=== PATIENT | male | born 1985 | race Caucasian/White ===

== ENCOUNTER 2017-03-29 11:06 | Emergency (ER) | payer OTHER ==
[2017-03-29] MEDS ORDERED: BENADRYL 50 MG/ML IV ONE (11:31)
[2017-03-29] MEDS ORDERED: MORPHINE SULFATE 10 MG/ML IV ONE (11:31)
[2017-03-29] MEDS ORDERED: MORPHINE SULFATE 10 MG/ML ONE (11:46)
[2017-03-29] MEDS ORDERED: BENADRYL 50 MG/ML ONE (11:46)
--- NOTE | 2017-03-29 12:04 | ERPHSYRPT ---
- History of Present Illness Time Seen by Provider: 03/29/17 11:18 Source: patient Patient Subjective Stated Complaint: PT STATES HORSE FELL ON HIM LAST NIGHT, AND NOW CO PAIN TO RIGHT RIB AREA, Triage Nursing Assessment: PT ALERT, RESP EASY,CHEST CLEAR, SKIN W/D PINK, NO BRUSING NOTED, HAS ABRSIONS TO RIGHT ARM Physician History: CC: right chest pain Hx: 31 y/o patient states horse fell on him yesterday evening. He has pain in right anterior rib area. Somewhat short of breath. No other complaints. No head injury. No neck or back pain. No abd pain. No back pain. Pain in ribs is moderately severe. Occurred: yesterday Loss of Consciousness: no loss of consciousness Severity of Pain-Max: severe Severity of Pain-Current: moderate Allergies/Adverse Reactions: No Known Drug Allergies Allergy (Unverified 03/29/17 11:26) Hx Tetanus, Diphtheria Vaccination/Date Given: Yes Hx Influenza Vaccination/Date Given: Yes Hx Pneumococcal Vaccination/Date Given: No Immunizations Up to Date: Yes - Review of Systems Constitutional: No Fever, No Chills Eyes: No Symptoms Respiratory: No Cough, No Dyspnea Cardiac: Chest Pain (right anterior ribs) Abdominal/Gastrointestinal: No Abdominal Pain, No Nausea, No Vomiting Musculoskeletal: Injury (right ribs), No Back Pain, No Neck Pain Neurological: No Focal Weakness, No Headache, No Parasthesia All Other Systems: Reviewed and Negative - Past Medical History Pertinent Past Medical History: No - Past Surgical History Past Surgical History: No - Social History Smoking Status: Current every day smoker Exposure to second hand smoke: Yes Drug Use: none Patient Lives Alone: No Physical Exam - Nursing Vital Signs Nursing Vital Signs: Initial Vital Signs Temperature 97.7 F Temperature Source Oral Pulse Rate 79 Respiratory Rate 16 Blood Pressure [Right Arm] 144/86 Pain Intensity 4 - [place] Coma Score Best Eye Response ([place]): (4) open spontaneously Best Verbal Response ([place]): (5) oriented Best Motor Response ([place]): (6) obeys commands [place] Total: 15 - Physical Exam General Appearance: alert Head Injury: no evidence of injury Eye Exam: bilateral eye: PERRL, EOMI ENT Exam: airway nml Neck Exam: supple, No mid-line tenderness Respiratory/Chest Exam: chest tenderness (right anterior ribs, no crepitus), normal breath sounds, No subcutaneous emphysema, No palpable fracture, No paradoxical movements Cardiovascular Exam: normal heart sounds, regular rate/rhythm, normal peripheral pulses (2+ femoral pulses), No murmur Gastrointestinal Exam: soft, No tenderness, No distention, No mass, No guarding , No ecchymosis Genitalia Exam: normal genital exam Back Exam: normal inspection, normal range of motion, No vertebral tenderness Extremity Exam: normal inspection, normal range of motion, pelvis stable Neurologic Exam: alert, oriented x 3, cooperative, sensation nml, No motor deficits Skin Exam: warm, dry SpO2 Interpretation: normal SpO2: 98 Oxygen Delivery: Room Air Procedures - Limited Abd FAST Ultrasound Right Upper Quadrant Findings: No Free Fluid, No Pleural Effusion Left Upper Quadrant Findings: No Free Fluid, No Pleural Effusion Pelvis: no free fluid Progress: Limited transabdominal ultrasound eFAST per ERMD for blunt chest trauma: No free fluid visible. Good lung sliding bilateral anterior chest. No pericardial effusion. - Course Nursing assessment & vital signs reviewed: Yes - Radiology Exams cxr X-ray Interpretation: Teleradiologist Report, Negative Ordered Tests: Active Orders 24 hr Category Date Time Status IV Insertion STAT Care 03/29/17 11:31 Active CHEST 2 VIEWS (PA AND LAT) Stat Exams 03/29/17 11:31 Completed Medication Summary Discontinued Medications Generic Name Dose Route Start Last Admin Trade Name Trisha PRN Reason Stop Dose Admin Diphenhydramine HCl 50 mg 03/29/17 11:31 03/29/17 11:47 Benadryl 50 Mg/Ml IV 03/29/17 11:32 50 mg STAT ONE Administration Diphenhydramine HCl Confirm 03/29/17 11:46 Benadryl 50 Mg/Ml Administered 03/29/17 11:47 Dose 50 mg .ROUTE .STK-MED ONE Morphine Sulfate 8 mg 03/29/17 11:31 03/29/17 11:47 Morphine Sulfate 10 Mg/Ml IV 03/29/17 11:32 8 mg STAT ONE Administration Morphine Sulfate Confirm 03/29/17 11:46 Morphine Sulfate 10 Mg/Ml Administered 03/29/17 11:47 Dose 10 mg .ROUTE .STK-MED ONE - Progress Progress Note: 03/29/17 12:31 No PNTX. Will treat as rib fracture. Counseled pt/family regarding: diagnosis, need for follow-up, rad results - Departure Time of Disposition: 12:32 Departure Disposition: Home Clinical Impression: Right rib fracture Qualifiers: Encounter type: initial encounter Fracture type: closed Condition: Stable Critical Care Time: No Referrals: DOCTOR,NO FAMILY [NON-STAFF PHY W/O PRIVILEGES] - Instructions: Rib Fracture Additional Instructions: Ice, rest. Rx norco- no driving or operating machinery. Rx motrin=ibuprofen. Return for difficulty breathing, coughing up blood, abdominal pain or concerns. Prescriptions: Hydrocodone Bit/Acetaminophen [[place] 5-325 Tablet] 1 each PO Q6H PRN PRN #20 tablet PRN Reason: Pain Ibuprofen 600 mg PO Q6H PRN PRN #24 tablet PRN Reason: Pain
--- NOTE | 2017-03-29 12:22 | XRAY ---
Indication: Right-sided chest pain following fall off horse. Comparison: None 2 views of the chest demonstrates normal heart, lungs, and bony thorax. Rib series may yield further information if there remains further clinical concern.
[2017-03-29 12:50] VITALS: BP 128/70; PULSE 70; O2SAT 100
== END 2017-03-29 12:50 | disposition home or self-care (01) ==
LOC: ED 11:06
DX: S22.31XA Fracture of one rib, right side, initial encounter for closed fracture (principal); V80.010A Animal-rider injured by fall from or being thrown from horse in noncollision accident, initial encounter
CPT/HCPCS: 36000; 71020; 76705; 96374; 96375; 99284; J1200; J2270